=== PATIENT | female | born 1990 | race Caucasian/White ===

== ENCOUNTER 2018-09-22 20:05 | Inpatient (IN) | payer OTHER ==
[2018-09-22] MEDS: DEXTROSE 5%-LACTATED RINGERS 1,000 ML IV SCH (20:50)
[2018-09-22] MEDS ORDERED: AMPICILLIN SODIUM 2 GM VIAL ONE (21:10)
[2018-09-22] MEDS ORDERED: PROMETHAZINE HCL 25 MG/1 ML VIAL IVPUSH ONE (21:18)
[2018-09-22] MEDS ORDERED: AMPICILLIN - 2 GM in SODIUM CHLORIDE 100 ML IVPB ONE ×2 (21:20→21:45)
--- NOTE | 2018-09-22 21:26 | HP ---
Past Medical History - Admission Chief Complaint: PROM History of Present Illness: 27yo @ 39wks here with PROM, clear fluid. No VB. No ctx preg c/b GBS positive History Source: Patient - Past Medical History [employer]: No: Alzheimer's, CVA, Dementia, Migraine, Multiple Sclerosis, Peripheral Neuropathy, Parkinson's, Seizure, Syncope, TIA, Vertigo, Other Cardiovascular: No: AFIB, Aneurysm, Aortic Insufficiency, Aortic Stenosis, CAD, CHF, Deep Vein Thrombosis, HTN, Hyperlipdemia, PR, Mitral Insufficiency, Mitral Stenosis, Murmur, Pulmonary Hypertension, Other ...: 3 ...Para: 1 ...Term: 1 ...: 0 ...Spon : 1 Heme/Onc: No: Anemia, B12 Deficiency, Bleeding Disorder, Cancer, Current Chemotherapy, Current Radiation Therapy, Hemochromatosis, Hypercoaguable State, Myeloproliferative Synd, Sickle Cell Disease, Sickle Cell Trait, Thrombocytopenia, Other Infectious Disease: Yes: Tuberculosis Psych: No: Addictions, Anxiety, Bipolar, Depression, Panic, Psychosis, Schizophrenia, Other Musculoskeletal: No: Bursitis, Chronic low back pain, Hemiparesis, Hemiplegia, Osteoarthritis, Paraplegia, Other - Past Surgical History Past Surgical History: Yes: None Hx Myomectomy: No Hx Transabdominal Cerclage: No - Smoking History Smoking history: Never smoked Have you smoked in the past 12 months: No - Alcohol/Substance Use Hx Alcohol Use: No History of Substance Use: reports: None - Social History Usual Living Arrangement: Yes: Alone Occupation: None History of Recent Travel: No Home Medications - Allergies Allergies/Adverse Reactions: Allergies Allergy/AdvReac Type Severity Reaction Status Date / Time No Known Allergies Allergy Verified 09/22/18 21:28 - Home Medications Home Medications: Ambulatory Orders Vitamins (Sjr) - 1 tab PO DAILY 09/22/18 Review of Systems - Review of Systems Constitutional: denies: No Symptoms, Chills, Diaphoresis, Fever, Lethargy, Loss of Appetite, Malaise, Night Sweats, Unintentional Wgt. Loss, Weakness, Other Eyes: denies: No Symptoms, Blind Spots, Blurred Vision, Double Vision, Eye Pain , Floaters, Photophobia, Recent Change in Vision, Other Neck: denies: No Symptoms, Decreased ROM, Lumps, Pain on Movement, Stiffness, Swollen Glands, Tenderness, Other Cardiovascular: denies: No Symptoms, Chest Pain, Edema, Palpitations, Shortness of Breath, Other Physical Exam - Maternity Constitutional: Yes: Well Nourished, No Distress, Calm Lungs: Clear to auscultation - Abdominal Exam/OB Number of Fetuses: Single Presentation: Vertex Contractions: No Monitor Mode: External Category: I Accelerations: Uniform Decelerations: None - Vaginal Exam/OB Vaginal Bleediing: No Dilatation (cm): 1 Amniotic Membrane Status: Ruptured Nitrazine Test: Positive Amniotic Fluid: Yes: Clear Presentation: Vertex/Position Station: -3 - Physical Exam Edema: No Assessment/Plan 27yo @ 39 wks with PROM Admit to L&D Amp for GBS positive Cytotec/pitocin for labor induction after adequate GBS ppx Cat 1 tracing Anticipate MARITO Soto MD
[2018-09-22 21:54] LABS: BASO % 0.3 % (0-2.0); EOS % 0.5 % (0-4.5); HEMATOCRIT 30.2 % (32.4-45.2); HEMOGLOBIN 10.1 GM/dL (10.7-15.3); LYMPH % 15.7 % (8-40); MCH 25.7 pg (25.7-33.7); MCHC 33.6 g/dl (32.0-36.0); MEAN CELL VOLUME 76.5 fl (80-96); MEAN PLT VOLUME 8.8 fl (7.5-11.1); MONO % 8.8 % (3.8-10.2); NEUT % 74.7 % (42.8-82.8); PLATELET COUNT 185 K/MM3 (134-434); RBC 3.94 M/mm3 (3.60-5.2); RDW 17.8 % (11.6-15.6); WHITE BLOOD COUNT 11.1 K/mm3 (4.0-10.0)
[2018-09-22 21:59] LABS: INR 0.97 (0.83-1.09); PROTHROMBIN TIME (PATIENT) 11.5 SEC (9.7-13.0)
[2018-09-22] MEDS ORDERED: BUTORPHANOL TARTRATE 1 MG/ML VIAL IVPB ONE (22:00)
[2018-09-22 22:02] LABS: ACTIVATED PTT 24.1 SECONDS (25.2-36.5)
[2018-09-22 22:13] LABS: ANION GAP 11 MMOL/L (8-16); BLOOD UREA NITROGEN 5 mg/dL (7-18); CALCIUM 8.4 mg/dL (8.5-10.1); CHLORIDE 107 mmol/L (98-107); CO2 20 mmol/L (21-32); CREATININE 0.4 mg/dL (0.55-1.3); GLUCOSE,RANDOM 110 mg/dL (74-106); POTASSIUM 3.8 mmol/L (3.5-5.1); SODIUM 138 mmol/L (136-145)
[2018-09-22 22:35] VITALS: BMI 34.7
[2018-09-23] MEDS ORDERED: AMPICILLIN SODIUM 1 GM VIAL ONE ×2 (00:51→05:00)
[2018-09-23] MEDS: AMPICILLIN - 1 GM in SODIUM CHLORIDE 100 ML IVPB SCH ×3 (01:00→12:53)
[2018-09-23] MEDS: DEXTROSE 5%-LACTATED RINGERS 1,000 ML IV SCH (01:00)
[2018-09-23] MEDS ORDERED: BUTORPHANOL TARTRATE 1 MG/ML VIAL ONE ×2 (02:19)
[2018-09-23] MEDS ORDERED: PROMETHAZINE HCL 25 MG/1 ML VIAL ONE (02:19)
[2018-09-23] MEDS ORDERED: FENTANYL/BUPIVACAINE/NS/PF - PCEA - 50 ML DISP.SYRIN EP ONE (03:13)
[2018-09-23] MEDS ORDERED: ELECTROLYTE-148 SOLN 1,000 ML IV SCH (03:15)
[2018-09-23] MEDS ORDERED: BUPIVACAINE HCL/PF 0.25% (2.5MG/ML) 10 ML VIAL ONE (03:24)
[2018-09-23] MEDS: FENTANYL/BUPIVACAINE/NS/PF - PCEA - 50 ML DISP.SYRIN EP SCH (03:40)
[2018-09-23] MEDS ORDERED: NALOXONE HCL 0.4 MG/ML VIAL IVPUSH PRN (03:46)
[2018-09-23] MEDS ORDERED: OXYTOCIN 20 UNITS in 0.9% NS 20 UNIT/1,000 ML INFUS.BAG IV ONE ×2 (05:21→07:31)
[2018-09-23] MEDS ORDERED: LIDOCAINE HCL 1% PRESERVATIVE FREE - 30ML VIAL ONE (05:21)
[2018-09-23] MEDS ORDERED: METHYLERGONOVINE MALEATE 0.2 MG/1 ML AMP IM PRN (06:07)
[2018-09-23] MEDS ORDERED: BENZOCAINE 28 GM HEMORRHOIDAL OINTMENT TP PRN (06:07)
[2018-09-23] MEDS ORDERED: WITCH HAZEL 50% (TUCKS) 40 PAD/JAR PAD TP PRN (06:07)
[2018-09-23] MEDS ORDERED: BENZOCAINE 20% 57 GM BOTTLE TP PRN (06:07)
[2018-09-23] MEDS ORDERED: BISACODYL 10 MG SUPP.RECT RC PRN (06:07)
--- NOTE | 2018-09-23 06:07 | PN ---
Delivery - Delivery Vaginal Delivery: Spontaneous Type of Anesthesia: Epidural Episiotomy/Laceration: None, Midline, 1st degree EBL (cc): 450 Delivery, Single - Stages of Labor Date of Delivery: 09/23/18 Time of Delivery: 05:47 Placenta: Yes: Spontaneous - Condition of Infant Gender: Female Position: Right, OA - Feeding Plan Initial Plan: Elected not to breastfeed exclusively throughout hospitalization Remarks - Remarks Remarks: of VFI over intact perineum from COREEN position. Epidural anesthesia. 39 weeks gestation. spontaneous delivery of anterior shoulder. Infant placed on maternal abdomen, cord clamped and cut. Weight pending, Apgars 9/9. Spontaneous delivery of intact placenta with 3VC. Perineum inspected, first degree laceration noted with extension into L labia majora. Repaired with 2-0 vicryl and then 2-0 chromic. Hemostasis noted. Fundus firm. EBL 450ml. Mother and baby doing well.
[2018-09-23] MEDS ORDERED: OXYTOCIN 20 UNITS in 0.9% NS 20 UNIT/1,000 ML INFUS.BAG IV SCH (06:15)
[2018-09-23] MEDS ORDERED: ACETAMINOPHEN 325 MG TABLET (FP) ONE (06:28)
[2018-09-23] MEDS ORDERED: IBUPROFEN 600 MG TABLET (FP) PO ONE (06:28)
[2018-09-23] MEDS: IBUPROFEN 600 MG TABLET (FP) PO PRN ×2 (06:35→22:48)
[2018-09-23] MEDS: ACETAMINOPHEN 325 MG TABLET (FP) PO PRN ×2 (06:35→22:48)
[2018-09-23] MEDS: FERROUS SO4 325 MG TABLET (FP) PO SCH ×3 (08:01→17:40)
[2018-09-23] MEDS: PRENATAL VITAMINS W/ FOLIC ACID TABLET (FP) PO SCH (09:52)
[2018-09-24] MEDS: IBUPROFEN 600 MG TABLET (FP) PO PRN ×2 (06:15→18:22)
[2018-09-24] MEDS: ACETAMINOPHEN 325 MG TABLET (FP) PO PRN ×2 (06:15→18:23)
--- NOTE | 2018-09-24 07:25 | PN ---
Progress Note (short form) - Note Progress Note: ppd 1 , s/p doing well, no c/o Last Vital Signs Temp Pulse Resp BP Pulse Ox 98.5 F 76 20 103/56 L 100 09/24/18 06:00 09/24/18 06:00 09/24/18 06:00 09/24/18 06:00 09/23/18 07:00 abdomen soft, no distension, no cva uterus firm no calf tenderness lochia mild impression . ppd 1, doing well plan ambulate , cbc
[2018-09-24 07:36] LABS: BASO % 0.4 % (0-2.0); EOS % 1.4 % (0-4.5); HEMATOCRIT 25.4 % (32.4-45.2); HEMOGLOBIN 8.4 GM/dL (10.7-15.3); LYMPH % 24.4 % (8-40); MCH 25.2 pg (25.7-33.7); MCHC 32.9 g/dl (32.0-36.0); MEAN CELL VOLUME 76.6 fl (80-96); MEAN PLT VOLUME 9.9 fl (7.5-11.1); MONO % 7.1 % (3.8-10.2); NEUT % 66.7 % (42.8-82.8); PLATELET COUNT 168 K/MM3 (134-434); RBC 3.32 M/mm3 (3.60-5.2); WHITE BLOOD COUNT 10.7 K/mm3 (4.0-10.0)
[2018-09-24] MEDS: FENTANYL/BUPIVACAINE/NS/PF - PCEA - 50 ML DISP.SYRIN EP SCH (08:47)
[2018-09-24] MEDS: FERROUS SO4 325 MG TABLET (FP) PO SCH ×3 (08:58→18:22)
[2018-09-24] MEDS: PRENATAL VITAMINS W/ FOLIC ACID TABLET (FP) PO SCH (08:59)
[2018-09-24] MEDS ORDERED: SENNOSIDES/DOCUSATE COMBO (SENNA PLUS) TABLET (UD) PO PRN (22:00)
[2018-09-25] MEDS: ACETAMINOPHEN 325 MG TABLET (FP) PO PRN ×2 (06:35→13:21)
[2018-09-25] MEDS: IBUPROFEN 600 MG TABLET (FP) PO PRN ×2 (06:35→13:22)
[2018-09-25] MEDS: FERROUS SO4 325 MG TABLET (FP) PO SCH ×2 (08:00→12:00)
--- NOTE | 2018-09-25 08:17 | PN ---
Post Progress Note Type of Delivery: Vital Signs: Vital Signs Temperature 98.2 F 09/24/18 21:23 Pulse Rate 79 09/24/18 21:23 Respiratory Rate 18 09/24/18 21:23 Blood Pressure 119/64 09/24/18 21:23 O2 Sat by Pulse Oximetry (%) 100 09/23/18 07:00 Uterus: Yes: Fundus below umbilicus Incision: Yes: Dressing dry and intact Abdomen/GI: Yes: Abdomen soft, Tolerating PO Lochia: Yes: Rubra Lochia, amount: Small Extremities: Yes: Calves non-tender Perineum: Yes: Laceration Activity: Ambulating - Labs Labs: CBC WBC 10.7 K/mm3 (4.0-10.0) H 09/24/18 06:45 RBC 3.32 M/mm3 (3.60-5.2) L 09/24/18 06:45 Hgb 8.4 GM/dL (10.7-15.3) L 09/24/18 06:45 Hct 25.4 % (32.4-45.2) L D 09/24/18 06:45 MCV 76.6 fl (80-96) L 09/24/18 06:45 MCH 25.2 pg (25.7-33.7) L 09/24/18 06:45 MCHC 32.9 g/dl (32.0-36.0) 09/24/18 06:45 RDW 18.0 % (11.6-15.6) H 09/24/18 06:45 Plt Count 168 K/MM3 (134-434) 09/24/18 06:45 MPV 9.9 fl (7.5-11.1) D 09/24/18 06:45 Absolute Neuts (auto) 7.2 K/mm3 (1.5-8.0) 09/24/18 06:45 Neutrophils % 66.7 % (42.8-82.8) 09/24/18 06:45 Lymphocytes % 24.4 % (8-40) D 09/24/18 06:45 Monocytes % 7.1 % (3.8-10.2) 09/24/18 06:45 Eosinophils % 1.4 % (0-4.5) D 09/24/18 06:45 Basophils % 0.4 % (0-2.0) 09/24/18 06:45 Nucleated RBC % 0 % (0-0) 09/24/18 06:45 Assessment/Plan 27yo s/p , PPD#2 Routine PP care Po pain control D/C to home today, RTO 4-6 weeks for PP follow up visit Marilia Soto MD
[2018-09-25 08:46] VITALS: BP 114/55; PULSE 73; TEMP 97.7
[2018-09-25] MEDS: PRENATAL VITAMINS W/ FOLIC ACID TABLET (FP) PO SCH (09:35)
== END 2018-09-25 14:00 | disposition home or self-care (01) | DRG 560 ==
LOC: JLDR 20:05 → J3W 09-23 07:50
PROVIDERS: ADMIT Obstetrics & Gynecology; ATTEND Obstetrics & Gynecology
PROC: 10E0XZZ Delivery of Products of Conception, External Approach (ICD-10-PCS; principal; 2018-09-23)
PROC: 0HQ9XZZ Repair Perineum Skin, External Approach (ICD-10-PCS; 2018-09-23)
PROC: 0W8NXZZ Division of Female Perineum, External Approach (ICD-10-PCS; 2018-09-23)
DX: O70.0 First degree perineal laceration during delivery (principal); Z3A.39 39 weeks gestation of pregnancy; O42.92 Full-term premature rupture of membranes, unspecified as to length of time between rupture and onset of labor; Z22.330 Carrier of Group B streptococcus; Z37.0 Single live birth
CPT/HCPCS: 36415; 59409; 80048; 85025; 85610; 85730; 86593; 86803; 86850; 86900; 86901